=== PATIENT | female | born 2000 | race Caucasian/White ===

== ENCOUNTER 2021-03-18 07:06 | Day surgery (SDC) | payer OTHER, SELFPAY ==
[~2021-03-18] VITALS: Ht 157.5 cm; Wt 45.4 kg
[2021-03-18] MEDS ORDERED: fentaNYL citrate 0.05 MG/ML VIAL ONE (08:49)
[2021-03-18] MEDS ORDERED: MIDAZOLAM 5 MG/5 ML VIAL ONE (08:49)
[2021-03-18] MEDS: MIDAZOLAM 2 MG/2 ML VIAL IVP ONE (08:56)
== END 2021-03-18 10:12 | disposition still patient (30) ==
LOC: MDS 07:06 → MMU 07:07 → MDS 10:12
PROVIDERS: ATTEND Internal Medicine Gastroenterology
DX: K21.9 Gastro-esophageal reflux disease without esophagitis (principal); Z88.0 Allergy status to penicillin; Z88.1 Allergy status to other antibiotic agents; Z79.899 Other long term (current) drug therapy; Z20.822 Contact with and (suspected) exposure to COVID-19
CPT/HCPCS: 43235; 81025; J2250; U0003; J3010